=== PATIENT | male | born 1960 | race Caucasian/White ===

== ENCOUNTER 2020-07-04 10:32 | Emergency (ER) | payer OTHER, SELFPAY ==
[2020-07-04 10:50] VITALS: BP 150/91; PULSE 78; RESP 20; TEMP 36.8; O2SAT 100
--- NOTE | 2020-07-04 11:23 | ED.MALEGU ---
HPI - Male Genitourinary General Chief complaint: Urogenital-Male Stated complaint: uti Time Seen by Provider: 07/04/20 11:20 Source: patient Mode of arrival: ambulatory Limitations: no limitations History of Present Illness HPI Narrative: Josef Peters is a 59 yo male with a PMH of HTN, high cholesterol, who comes with tingling with urination that started yesterday; during course discussion patient also mentioned that he is having nasal drainage and sore throat not feeling as well as he normally does Related Data Home Medications Medication Instructions Recorded Confirmed escitalopram oxalate mg 07/04/20 lisinopril 07/04/20 simvastatin mg 07/04/20 Allergies Allergy/AdvReac Type Severity Reaction Status Date / Time No Known Allergies Allergy Verified 07/04/20 11:41 Review of Systems Review of Systems: Narrative: CONSTITUTIONAL: Denies fever, chills, sweats. EYES: Denies visual changes, redness, discharge. ENT:has rhinorrhea, congestion, has sore throat, no otalgia. CARDIOVASCULAR: Denies chest pain, palpitations, edema. RESPIRATORY: Denies dyspnea, wheezing, cough GASTROINTESTINAL: Denies abdominal pain, nausea, vomiting, diarrhea. GENITOURINARY: Has dysuria, hematuria, abnormal discharge SKIN: Denies rash or itching. NEUROLOGIC: Denies numbness, or focal weakness. PSYCHIATRIC: Denies anxiety or depression. [facility] Past Medical History Medical History High cholesterol HTN (hypertension) Family History Family History Father Cerebrovascular accident Social History Social History Smoking status: Former smoker Alcohol intake: current Comments At time of signature, I agree with nursing past medical, surgical, social and family history. There is no relevant family history pertinent to the presenting complaint. Exam Narrative: Exam Narrative: GENERAL: This is a well-nourished, well-developed patient, in mild distress. HEAD: normocephalic, atraumatic. EYES: PERRL. Sclera clear/white. Vision is grossly intact. EARS: External ears normal Hearing grossly intact. NOSE: External nose normal without nasal discharge, nares without redness, has rhinorrhea. THROAT: Mucous membranes moist, posterior pharynx erythema NECK: Neck supple, non-tender CARDIOVASCULAR: Regular rate and rhythm without murmurs, gallops, or rubs. RESPIRATORY: Clear to auscultation. Breath sounds equal bilaterally. No wheezes, rales, or rhonchi. GASTROINTESTINAL: Abdomen soft, non-tender, SKIN: warm, intact with no suspicious lesions or rash, good texture and turgor. NEURO: awake, alert, and oriented to person, place and time. There were no obvious focal neurologic abnormalities. Steady gait EXTREMITIES: Normal range of motion. BACK: Nontender without deformity Course Course Emergency Course: Patient here with tingling with urination-on exam mentions also rhinorrhea sore throat not feeling well UA shows no nitrite or leukocyte but given that he has dysuria we will treat with Cipro 500 mg 1 twice daily x5 days; because of upper respiratory symptoms started on Zyrtec and sent for Covid testing Follow-up with PCP Vital Signs Vital signs: Vital Signs Temperature 98.2 F 07/04/20 10:50 Pulse Rate 78 07/04/20 10:50 Respiratory Rate 20 07/04/20 10:50 Blood Pressure 150/91 H 07/04/20 10:50 Pulse Oximetry 100 07/04/20 10:50 Temperature 98.2 F 07/04/20 10:50 Pulse Rate 78 07/04/20 10:50 Respiratory Rate 20 07/04/20 10:50 Blood Pressure 150/91 H 07/04/20 10:50 Pulse Oximetry 100 07/04/20 10:50 MDM - Male Genitourinary Differential Diagnosis Differential diagnosis: Likely urinary tract infection and other (URI versus Covid) Lab Data Labs: Urine Glucose Negative Refere
== END 2020-07-04 12:35 | disposition home or self-care (01) ==
PROVIDERS: Emergency Provider Nurse Practitioner; PCP Internal Medicine
DX: N30.00 Acute cystitis without hematuria (principal); J06.9 Acute upper respiratory infection, unspecified; Z20.828 Contact with and (suspected) exposure to other viral communicable diseases; Z87.891 Personal history of nicotine dependence; E78.00 Pure hypercholesterolemia, unspecified; I10 Essential (primary) hypertension
CPT/HCPCS: 81003; 99213; G0463

== ENCOUNTER 2020-07-05 08:11 | Outpatient (NON) | payer OTHER, SELFPAY ==
[2020-07-05 19:59] LABS: SARS-CoV-2 RNA PCR Negative
== END 2020-07-05 08:12 ==
LOC: ANHCOVIDDT 08:12
PROVIDERS: PCP Internal Medicine; Visit Provider Nurse Practitioner
DX: Z20.828 Contact with and (suspected) exposure to other viral communicable diseases (principal); J06.9 Acute upper respiratory infection, unspecified
CPT/HCPCS: 87635; C9803; U0003

== ENCOUNTER → 2022-02-20 15:15 | Outpatient (CLI) | payer OTHER, SELFPAY ==
--- NOTE | ~2022-02-20 | US_ITS ---
EXAMINATION: US soft tissue UE LT DATE: 02/20/2022 15:37 INDICATION: Chronic left shoulder area mass. TECHNIQUE: Multiple grayscale and Doppler ultrasound images of the left upper extremity were obtained . COMPARISON: None FINDINGS: There is a 2.8 x 1.1 x 3.7 cm subcutaneous mass in the patient's area of concern in the lef t upper limb near the shoulder with echogenicity and echotexture similar to fat. IMPRESSION: 1. 3.7 cm subcutaneous mass in the left shoulder area, most likely a lipoma. Reviewed, dictated and finalized at location A.
== END ==
PROVIDERS: PCP Internal Medicine; Visit Provider Surgery
DX: R22.32 Localized swelling, mass and lump, left upper limb (principal)
CPT/HCPCS: 76882

== ENCOUNTER 2022-03-01 02:55 | Day surgery (SDC) | payer OTHER, SELFPAY ==
[2022-02-24 09:47] VITALS: BMI 23.9
--- NOTE | 2022-02-24 09:55 | PC.NURSE ---
Report to the Outpatient Waiting Room, entrance under the green pavilion located off [address], at time 0830 on date 03/01/22. OR Time: 1030. - You and your visitor will be asked a series of questions to screen for COVID 19 for your protection. - Only one visitor is allowed at this time. - The patient visitor is requested to leave or wait in car when not with patient. - A mask is required within the hospital. Patients may have clear liquids (water, carbonated beverages, clear teas, apple juice) until 3 hours prior to surgery (0730) with a maximum of 20 ounces. - No food from midnight until time of surgery Take the following medications with a SIP of water the morning of surgery: ESCITALOPRAM Medications to discontinue per physician: N/A Date to take last dose: N/A Please no make-up, nail moldovan, hairspray, perfume, deodorant, or body powder the day of surgery. No jewelry (including any body piercings) or valuables the day of surgery, leave them at home. Please take a shower or bath the night before, or the morning of, surgery with an antibacterial soap. Wear comfortable, loose fitting clothing. - Jewelry must be removed prior to entering the operating room. Rings and piercings that are not removed may be cut off. - The hospital will not accept responsibility for valuables. - Please leave all valuables, including medications, at home the day of surgery. If you are going home after surgery, a licensed buggy driver must drive you home. - NO public transportation without another adult. - We recommend that an adult stay with you for 24 hours following discharge. - We also recommend that you do not drive, make important decision, drink alcoholic beverages, or take any drugs that were not prescribed by your health care provider for at least 24 hours after your discharge time. Follow any additional instructions given to you from your surgeon. If you or anyone in your household have experienced Covid symptoms in the past week, please notify your surgeon or the nurse liaison at the phone number below for possible testing. Telephone instructions given to PT - GAYLE BRYAN and asked if any additional questions and then verbalized understanding. Patient advised to call surgeon office or pre surgery nurse liaison [phone] if any additional questions.
--- NOTE | 2022-02-28 12:02 | PM.SD2 ---
Same Day Admit/Disch: HPI History of Present Illness Chief complaint: subq mass left shoulder Narrative: Josef Peters is a 61 year old male who has an enlarging subcutaneous mass in the left shoulder near the AC joint. He has had this for at least 10 years. I saw him in the office and this appeared to be a lipoma. He had an ultrasound which also suggested a lipoma. He is taken to surgery now for excision. [facility] Past Medical History Medical History (Updated 01/16/22 @ 13:41 by Joceline Amaral) High cholesterol HTN (hypertension) Surgical History Surgical History History of back surgery History of tympanoplasty Family History Family History Father Cerebrovascular accident Malignant neoplasm of prostate Social History Social History Smoking status: Never smoker Tobacco type: cigars and smokeless tobacco Smokeless tobacco user: chewing tobacco Alcohol intake: current Alcohol use details: 3/MONTH Substance use: never Substance use type: does not use Spiritual care concerns: Yes Same Day Admit/Disch: Med Pre-admit Medications Home Medications Medication Instructions Recorded Confirmed Type escitalopram oxalate 5 mg tablet 5 mg PO DAILY 07/04/20 03/01/22 History lisinopril 10 mg tablet 10 mg PO DAILY 07/04/20 03/01/22 History simvastatin 10 mg tablet 10 mg PO HS 07/04/20 03/01/22 History ibuprofen 600 mg tablet 600 mg PO Q6H PRN pain #14 tabs 03/01/22 Rx Exam Const: General: comfortable, no acute distress, alert and awake HENMT: Head: normocephalic and atraumatic Mouth: Yes Normal oral and palatal mucosa present Eyes: Conjunctivae: conjunctivae normal Pupils: Equal, round and reactive pupils present EOM: EOMs intact bilaterally Neck: Neck: normal visual inspection, no lymphadenopathy and nontender Resp: Effort & Inspection: normal respiratory effort Auscultation: clear to auscultation bilaterally Cardio: Rate: regular rate Rhythm: regular rhythm Heart sounds: no gallops, no murmurs and no rubs GI: Inspection: non-distended GI Palp: Yes Soft to palpation, No Tenderness to palpation present (GI), No Hepatomegaly present and No Splenomegaly present Skin: Lesions: no lesions Rashes: no rashes Neuro: General: no focal motor deficits and CN's II-XI intact bilaterally Cranial nerves: Yes Equal, round and reactive pupils present, Yes Bilaterally intact EOM present, Yes facial symmetry and Yes Midline tongue present Speech: normal speech Motor exam (neuro): 5/5 motor strength present throughout and Motor abnormalities not present Extrem: General: no clubbing, cyanosis or edema and edema Left upper extremity: shoulder/upper arm ( 4.5 x 3.5 cm subcutaneous mass just medial to AC joint.) Psych: Affect: normal affect Thought process: Normal thought process present Insight: Good insight present (Psych) DS: Summary Time Spent with Patient Time attestation: Total time spent providing and/or coordinating discharge services: DS: Admitting Diagnosis Discharge Date 03/01/2022 Admitting Diagnosis subcutaneous mass left shoulder-most likely a lipoma. Plan to excise under anesthesia as an outpatient. The procedure the risks the benefits and the usual recovery have been discussed. All questions were answered. He understands and agrees to go ahead. Discharge Plan Discharge Patient Disposition: Home, Self-Care Discharge Instructions: No lifting over 15 lb with left arm for 1 week. May bathe or shower tomorrow. Avoid swimming pool for 1 week. Diet is tolerated May drive on Sunday Call for severe pain, bleeding, other significant change in condition. Stand Alone Forms: General Discharge Instructions Follow-up/Referrals: Leo Dorantes MD [Physician] - 2 Weeks Discharge Medications:
[2022-03-01 08:16] VITALS: BP 143/87; PULSE 72; RESP 16; TEMP 36.4; O2SAT 100
[2022-03-01] MEDS: LACTATED RINGERS 1,000 ML 30 ML IV CONT (08:16)
--- NOTE | 2022-03-01 08:41 | WPDHPUPDATE1 ---
History and Physical Update Update Date/Time: 03/01/22 08:41 History and Physical has been reviewed, including an updated exam of the patient. There are NO changes in the patient's condition. Risks, benefits, and alternatives have been discussed and questions answered. Patient agrees to proceed with procedure.
--- NOTE | 2022-03-01 08:48 | WPDANESEPPF ---
Anes - Initial Pre Proc Eval Procedure: Operation Date: 03/01/22 09:00 Proposed Procedures p Excision Subcutaneous Mass Left Shoulder - Leo Dorantes MD Date/Time: 03/01/22 08:48 Surgeon: Leo Dorantes MD Pre Op Diagnosis: subq mass left shoulder Patient Data Age: 61 Gender: M Height: 1.83 m Weight: 80.8 kg Last Vital Signs Temp 97.6 F 03/01/22 08:16 Pulse 72 03/01/22 08:16 Resp 16 03/01/22 08:16 BP 143/87 H 03/01/22 08:16 Pulse Ox 100 03/01/22 08:16 O2 Del Method Room Air 03/01/22 08:16 Allergies Allergy/AdvReac Type Severity Reaction Status Date / Time No Known Allergies Allergy Verified 03/01/22 07:58 Home Medications Medication Instructions Recorded Confirmed Type escitalopram oxalate 5 mg tablet 5 mg PO DAILY 07/04/20 03/01/22 History lisinopril 10 mg tablet 10 mg PO DAILY 07/04/20 03/01/22 History simvastatin 10 mg tablet 10 mg PO HS 07/04/20 03/01/22 History Patient hx anesthesia problems: none Family hx anesthesia problems: none Results Review: All pre-operative results and documents have been reviewed as part of the pre-operative evaluation. COUNTS INCLUDE 234 BEDS AT THE [facility] Past Medical History Medical History (Updated 01/16/22 @ 13:41 by Joceline Amaral) High cholesterol HTN (hypertension) Surgical History Surgical History History of back surgery History of tympanoplasty Family History Family History Father Cerebrovascular accident Malignant neoplasm of prostate Social History Social History Smoking status: Never smoker Tobacco type: cigars and smokeless tobacco Smokeless tobacco user: chewing tobacco Alcohol intake: current Alcohol use details: 3/MONTH Substance use: never Substance use type: does not use Spiritual care concerns: Yes Anes - Eval Final PreProcedure Day of Procedure 03/01/22 08:48 Patient weight: normal Heart: regular rate and rhythm Lungs: clear to auscultation Airway: Mallampati scale class II Neurological: alert and oriented Last oral intake: >/= 8 hours ASA classification: II Emergent: no Anesthetic plan: proceed Anesthesia type and monitoring: general GIVS and standard monitoring Results Review: All pre-operative results and documents have been reviewed as part of the pre-operative evaluation. Informed Consent: The patient's anesthetic plan and its attendant risks and benefits were discussed with the patient/family/POA. Questions were solicited and answers provided to the satisfaction of the patient/family/POA.
--- NOTE | 2022-03-01 08:54 | WPDHPUPDATE1 ---
History and Physical Update Update Date/Time: 03/01/22 08:54 History and Physical has been reviewed, including an updated exam of the patient. There are NO changes in the patient's condition. Risks, benefits, and alternatives have been discussed and questions answered. Patient agrees to proceed with procedure.
[2022-03-01] MEDS: ceFAZolin 2 GM/D5W 50 ML 2 GM/50 ML BAG IVPB (09:05)
[2022-03-01] MEDS: LIDO 1%/EPINEPHRINE/PF 1:200,000 30 ML VIAL XX (09:31)
[2022-03-01 09:48] VITALS: BP 112/67; PULSE 63; RESP 16; O2SAT 100
--- NOTE | 2022-03-01 10:03 | W.PM.PROC2 ---
Procedure Note - Detailed Date of Procedure 03/01/22 Pre-op Diagnosis subq mass left shoulder Post-op Diagnosis Same Procedure Performed Excision 3.5 cm subcutaneous mass left shoulder, no margin Surgeon Leo Dorantes MD [employer] Shon KHAN Anesthesia General (G IV S) and Local (1% lidocaine with epinephrine) Indications Patient has a longstanding subcutaneous mass over the left shoulder just medial to the AC joint. It rubs on his seatbelt or any kind of shoulder strap such as a backpack and is painful then. He was seen in the office and is taken to surgery now for excision. Findings 3.5 x 3 x 1.4 cm lipoma Description of Procedure Patient was checked in the preoperative holding area. General border of the mass and the proposed incision was marked on the skin. He was then taken to surgery and placed in a supine position with the left shoulder slightly elevated. Prep and drape was carried out. Local anesthetic was infiltrated into the skin and the deeper subcutaneous tissues. Field block was placed as well around the mass. Incision was made dissection was carried down through the skin and subcutaneous. The mass was below Sreedhar's fascia. Sharp and blunt dissection was used to shell the mass out from the subcutaneous and off the shoulder ligaments. It was excised in 1 piece. It was measured with size as above. It was sent to pathology in formalin. The wound was anesthetized with additional local anesthetic. Cautery was used to achieve hemostasis. Sreedhar's fascia was closed with interrupted 3-0 Vicryl suture. The skin was loosely approximated with subcuticular 4-0 Vicryl skin sutures. Finally a running 4-0 Monocryl skin suture was placed. The wound was dressed with Exofin surgical adhesive. The patient was awakened and taken to recovery in good condition. Sponge and needle counts were correct x2. Estimated Blood Loss -2.0 Drains No Packing No Pathology Yes (Subcutaneous mass left shoulder, grossly a lipoma) Complications No immediate complications Condition Stable Disposition Same day [facility] Billing Surgery - Charge Forward: Surgery Billing (Excision 3.5 cm lipoma left shoulder, no margin)
[2022-03-01 10:15] VITALS: BP 95/59; PULSE 62; RESP 16
[2022-03-01 10:35] VITALS: BP 134/77; PULSE 51; RESP 16
== END 2022-03-01 10:45 | disposition home or self-care (01) ==
PROVIDERS: PCP Internal Medicine; Visit Provider Surgery
PROC: (CPT 24071; principal; 2022-03-01 09:00)
DX: D17.22 Benign lipomatous neoplasm of skin and subcutaneous tissue of left arm (principal); I10 Essential (primary) hypertension; E78.00 Pure hypercholesterolemia, unspecified; F17.220 Nicotine dependence, chewing tobacco, uncomplicated
CPT/HCPCS: 24071; 88304; J0690; J1100; J2250; J2405; J2704; J3010; J7120

== ENCOUNTER 2023-09-10 01:12 | Day surgery (SDC) | payer OTHER, SELFPAY ==
[2023-08-13 15:31] VITALS: BMI 24.5
--- NOTE | 2023-09-07 09:56 | SUR.PREOP ---
Patient called regarding upcoming procedure. Message left on voicemail regarding appointment times.
--- NOTE | 2023-09-09 11:08 | PM.HPGS ---
History of Present Illness History of Present Illness Consent: Risks, benefits, and alternatives have been discussed and questions answered. Patient agrees to proceed with procedure. Chief complaint: neoplasm screening Narrative: Josef Peters is a 62 year old male Was referred for colon cancer screening. his last colonoscopy was 10 years ago and was apparently unremarkable. Review of Systems Review of Systems: All systems reviewed & are unremarkable except as noted in HPI and below PMFSH Past Medical History Medical History Annual physical exam Anxiety Encounter for screening for malignant neoplasm of prostate High cholesterol HTN (hypertension) Screening for colon cancer Tremor of both hands Surgical History Surgical History History of back surgery History of excision of mass Excision 3.5 cm subcutaneous mass left shoulder, no margin 03/01/2022 History of tympanoplasty Family History Family History Father Cerebrovascular accident Malignant neoplasm of prostate Social History Social History Smoking status: Never smoker Tobacco type: cigars and smokeless tobacco Smokeless tobacco user: chewing tobacco Alcohol intake: current Alcohol use details: Rarely Substance use: never Substance use type: does not use Lack of Transportation: No Lack of Food: Never True Current Housing: I Have Housing Concerned About Future Housing: No Difficulty Paying Gas/Electric Bills: No Difficulty Paying for Meds: No Currently Unemployed: No Difficulty w/ Childcare or Family Care: No Living arrangements: other Additional living arrangements comments: with sp Occupation/Education: retired Gender identity (if verbalized by the patient): Male Sexual Orientation (if Verbalized by the Patient): Straight or Heterosexual Spiritual care concerns: Yes Meds Home Medications and Allergies Home Medications Medication Instructions Recorded Confirmed Type hydroxyzine HCl 25 mg tablet 25 mg PO TID PRN anxiety #40 tabs 10/12/22 09/10/23 Rx simvastatin 10 mg tablet 10 mg PO HS #90 tabs 03/26/23 09/10/23 Rx escitalopram oxalate 10 mg tablet 10 mg PO DAILY #90 tabs 04/06/23 09/10/23 Rx (Lexapro) lisinopril 10 mg tablet 10 mg PO DAILY 09/10/23 09/10/23 History Allergies Allergy/AdvReac Type Severity Reaction Status Date / Time No Known Allergies Allergy Verified 09/10/23 10:06 Exam Resp: Auscultation: clear to auscultation bilaterally Cardio: Rate: regular rate Rhythm: regular rhythm GI: GI Palp: Yes Soft to palpation and No Tenderness to palpation present (GI) Assessment and Plan Assessment and plan (1) Screening for colon cancer: Code(s): Z12.11 - Encounter for screening for malignant neoplasm of colon Status: Acute Assessment and Plan: Colonoscopy with possible biopsy or polypectomy or cautery or injection of substances.
[2023-09-10 10:08] VITALS: BP 136/87; PULSE 70; RESP 18; TEMP 36.3; O2SAT 99
[2023-09-10] MEDS: LACTATED RINGERS 1,000 ML 150 ML IV CONT (10:09)
--- NOTE | 2023-09-10 11:00 | WPDANESEPPF ---
Anes - Initial Pre Proc Eval Procedure: Operation Date: 09/10/23 11:00 Proposed Procedures p Screening Colonoscopy - Tang Hoyt MD Date/Time: 09/10/23 11:00 Surgeon: Tang Hoyt MD Pre Op Diagnosis: neoplasm screening Patient Data Age: 62 Gender: M Height: 1.83 m Weight: 75.3 kg Last Vital Signs Temp 97.3 F L 09/10/23 10:08 Pulse 70 09/10/23 10:08 Resp 18 09/10/23 10:08 BP 136/87 09/10/23 10:08 Pulse Ox 99 09/10/23 10:08 O2 Del Method Room Air 09/10/23 10:08 Allergies Allergy/AdvReac Type Severity Reaction Status Date / Time No Known Allergies Allergy Verified 09/10/23 10:06 Home Medications Medication Instructions Recorded Confirmed Type hydroxyzine HCl 25 mg tablet 25 mg PO TID PRN anxiety #40 tabs 10/12/22 09/10/23 Rx simvastatin 10 mg tablet 10 mg PO HS #90 tabs 03/26/23 09/10/23 Rx escitalopram oxalate 10 mg tablet 10 mg PO DAILY #90 tabs 04/06/23 09/10/23 Rx (Lexapro) lisinopril 10 mg tablet 10 mg PO DAILY 09/10/23 09/10/23 History Patient hx anesthesia problems: none Family hx anesthesia problems: none Results Review: All pre-operative results and documents have been reviewed as part of the pre-operative evaluation. [facility] Past Medical History Medical History Annual physical exam Anxiety Encounter for screening for malignant neoplasm of prostate High cholesterol HTN (hypertension) Screening for colon cancer Tremor of both hands Surgical History Surgical History History of back surgery History of excision of mass Excision 3.5 cm subcutaneous mass left shoulder, no margin 03/01/2022 History of tympanoplasty Family History Family History Father Cerebrovascular accident Malignant neoplasm of prostate Social History Social History Smoking status: Never smoker Tobacco type: cigars and smokeless tobacco Smokeless tobacco user: chewing tobacco Alcohol intake: current Alcohol use details: Rarely Substance use: never Substance use type: does not use Lack of Transportation: No Lack of Food: Never True Current Housing: I Have Housing Concerned About Future Housing: No Difficulty Paying Gas/Electric Bills: No Difficulty Paying for Meds: No Currently Unemployed: No Difficulty w/ Childcare or Family Care: No Living arrangements: other Additional living arrangements comments: with sp Occupation/Education: retired Gender identity (if verbalized by the patient): Male Sexual Orientation (if Verbalized by the Patient): Straight or Heterosexual Spiritual care concerns: Yes Anes - Evbhargavi Final PreProcedure Day of Procedure 09/10/23 11:00 Patient weight: normal Heart: regular rate and rhythm Lungs: clear to auscultation Airway: Mallampati scale class II Neurological: alert and oriented Last oral intake: >/= 8 hours ASA classification: II Emergent: no Anesthetic plan: proceed Anesthesia type and monitoring: general GIVS and standard monitoring Results Review: All pre-operative results and documents have been reviewed as part of the pre-operative evaluation. Informed Consent: The patient's anesthetic plan and its attendant risks and benefits were discussed with the patient/family/POA. Questions were solicited and answers provided to the satisfaction of the patient/family/POA.
[2023-09-10 11:44] VITALS: BP 157/97; PULSE 58; RESP 18; O2SAT 96
[2023-09-10 11:54] VITALS: BP 126/83; PULSE 59; RESP 20; O2SAT 96
[2023-09-10 12:04] VITALS: BP 94/66; PULSE 62; RESP 19; O2SAT 99
== END 2023-09-10 12:19 | disposition home or self-care (01) ==
PROVIDERS: PCP Family Medicine; Visit Provider Internal Medicine Gastroenterology
PROC: 0DJD8ZZ Inspection of Lower Intestinal Tract, Via Natural or Artificial Opening Endoscopic (ICD-10-PCS; CPT 45378; principal; 2023-09-10 11:00)
DX: Z12.11 Encounter for screening for malignant neoplasm of colon (principal); F41.9 Anxiety disorder, unspecified; E78.00 Pure hypercholesterolemia, unspecified; I10 Essential (primary) hypertension; R25.1 Tremor, unspecified; Z98.890 Other specified postprocedural states; F17.220 Nicotine dependence, chewing tobacco, uncomplicated; Z82.49 Family history of ischemic heart disease and other diseases of the circulatory system; Z80.42 Family history of malignant neoplasm of prostate
CPT/HCPCS: 45378; J2704; J7120